=== PATIENT | male | born 1975 | race Caucasian/White ===

== ENCOUNTER 2019-06-01 22:23 | Inpatient (IN) ==
--- OUTSIDE RECORDS SUMMARY | 2019-06-01 22:26 | External Medical Summary | Continuity of Care Document ---
:1975 Author Name Velia Tony, Provider Address Unavailable Unavailable , Care Team Providers Name Role Phone Natalya Tony, Alexis Choudhury Unavailable [email or web address] Windy GILBERT Unavailable Unavailable Unavailable Unavailable Unavailable Assessments Assessed Problems:Rheumatic fever Problems Visit for vasectomy evaluation (V25.09) (Z30.09) Pain in scrotum or testicle (608.9) Encounter for sterilization (V25.2) (Z30.2) Rheumatic fever (390) (I00) Encounter for vasectomy (V25.2) (Z30.2) Hypertension (401.9) (I10) Allergies and Adverse Reactions No Known Drug Allergies (Allergy) Medications Excedrin Migraine TABS; TAKE 1 TABLET 3 TIMES DAILY NEEDE D. Refills: 0 Co Q10 100 MG Oral Capsule; TAKE 1 CAPSULE Daily Refills: 0 Folic Acid 5 MG Oral Capsule Refills: 0 Vitamin B12 100 MCG Oral Tablet Refills: 0 amLODIPine Besylate 5 MG Oral Tablet; TAKE 1 TABLET DAILY. Start: 21-Nov-2018 Quantity: 90 Refills: 3 Fluocinonide 0.05 % External Cream Start : 21-Nov-2018 Refills: 0 Pimecrolimus 1 % External Cream Start: Refills: 0 30 GM Tube Methotrexate Sodium 2.5 MG Oral Tablet; take 6 tablets by [facility] every week Start: 21-Nov-2018 Refills: 0 Procedures History of Oral Surgery Tooth Extraction Status: Completed Immunizations Immunizations not documented Family History Father Family history of hypertension (V17.49) (Z82.49) Status: Act anne-marie Grandfather Family history of hypertension (V17.49) (Z82.49) Status: Act anne-marie Grandmother Family history of leukemia (V16.6) (Z80.6) Status: Active Social History - Smoking Status Never smoker Interventions Discussion/[id number] male with persistent arthritis with skin rash with question of rheumatic fever. Diagnosis of rheumatic fever appears highly unlikely given that arthritis is more predominantly small joint rash inconsistent with erythema marginatum given pruritic nature and appearance, and would not expect any significant response to methotrexate. I agreed that this most likely represents psoriatic disease, and had no problem with discontinuation of penicillin and institution of biologics if necessary. Und ertook extensive discussion regarding all aspects of rheumatic fever, patient appears satisfied withour discussion. Plan of Treatment Planned Observations Planned Goals not documented Results No Known Results Results not documented Encounters Appointment; Alexis Hoang M.D. 21-Nov-2018 11:30 Encounter Diagnosis: Problem not documented
[2019-06-01] MEDS ORDERED: ONDANSETRON INJ 2 MG/ML 2 ML VIAL IV STA (22:49)
[2019-06-01] MEDS ORDERED: SODIUM CHLORIDE 0.9% 1000ML 1,000 ML IV SCH (23:00)
[2019-06-01] MEDS: MoRPHine SULFATE 4 MG/ML 1 ML CARP\\VIAL IV PRN ×2 (23:05→23:23)
[2019-06-01 23:12] LABS: Basophils # (auto) 0.01 K/uL (0-0.2); Basophils % (auto) 0.1 %; Eosinophils # (auto) 0.06 K/uL (0-0.5); Eosinophils % (auto) 0.7 %; Hematocrit (blood only) 38.3 % (42-52); Hemoglobin 12.9 g/dL (14.0-18.0); Immature Granulocytes # (auto) 0.02 K/uL (0.00-0.02); Immature Granulocytes % (auto) 0.2 %; Lymphocytes # (auto) 1.69 K/uL (1.2-3.4); Lymphocytes % (auto) 20.2 %; Mean Corpuscular Hemoglobin 30.1 pg (25-34); Mean Corpuscular Hgb Conc 33.7 g/dL (32-36); Mean Corpuscular Volume 89.3 fL (80-100); Mean Platelet Volume 9.9 fL (7.4-10.4); Monocytes # (auto) 0.47 K/uL (0.11-0.59); Monocytes % (auto) 5.6 %; Neutrophils # (auto) 6.12 K/uL (1.4-6.5); Neutrophils % (auto) 73.2 %; Platelet Count 254 K/uL (130-400); RDW Coefficient of Variation 13.1 % (11.5-14.5); RDW Standard Deviation 42.7 fL (36.4-46.3); Red Blood Count 4.29 M/uL (4.7-6.1); White Blood Count 8.37 K/uL (4.8-10.8)
[2019-06-01 23:31] LABS: Alanine Aminotransferase 42 U/L (12-78); Albumin Level 4.2 gm/dl (3.4-5.0); Aspartate Aminotransferase 16 U/L (15-37); BUN Creatinine Ratio 9.1 (10-20); Blood Urea Nitrogen 7 mg/dl (7-18); Carbon Dioxide 27 mmol/L (21-32); Chloride 105 mmol/L (98-107); Est GFR (African American) 127.5; Glucose 114 mg/dl (70-99); Lipase 83 U/L (73-393); Potassium 3.7 mmol/L (3.5-5.1); Sodium 142 mmol/L (136-145)
[2019-06-01 23:33] LABS: Albumin Globulin Ratio 1.4 (0.9-2); Alkaline Phosphatase 74 U/L (45-117); Bilirubin,Total 0.5 mg/dl (0.2-1); Globulin 3.1 gm/dl (2.5-4.0); Total Protein 7.3 gm/dl (6.4-8.2)
[2019-06-01] MEDS ORDERED: HYDROmorphone INJ 1 MG/ML SYRINGE IV PRN (23:58)
[2019-06-02 01:03] LABS: Troponin I < 0.015 ng/ml (0-0.045)
[2019-06-02] MEDS ORDERED: TAMSULOSIN HCL 0.4 MG CAP PO ONE (01:22)
[2019-06-02] MEDS ORDERED: KETOROLAC TROMETHAMINE 15 MG/ML VIAL IV ONE (01:22)
--- NOTE | 2019-06-02 01:53 | Emergency Department Note ---
Entered by Alessandro Ceballos acting as a scribe for Marvin Richards DO History of Present Illness General Chief complaint: GI Assessment Stated complaint: LOWER BACK PAIN,CHILLS,VOMITING,LOWER ABD PAIN Source: patient Limitations: no limitations History of Present Illness Onset (ago): hour(s) (three and half hours) Location: back Radiation: distal (testicles) Pain Consistency: + other (worsening) Maximum Pain Intensity: 8 Quality: + constant Associated symptoms: + denies other symptoms (dark or bloody urine) and + fever/chills (chills) Treatments prior to arrival: heat therapy The patient is a 43 year old male who presents to the Emergency Room with complaints of constant and worsening lower back pain starting 3 and a half hours ago. He states the pain came on suddenly and the pain radiates to his right testicle. He states he started to get chills an hour and half ago. He notes he has been vomiting and has nausea. He denies a previous history of kidney stones. He states he feels like he needs to produce a bowel movement. He notes he does not feel like he needs to urinate. He notes he used heat therapy. He denies dark urine, bloody urine, smoking, and drinking alcohol. He states he takes Otezla. He notes he is allergic to methotrexate. He states he has had wisdom teeth surgery. Home Medications Home Medications Medication Instructions Recorded Confirmed Type amlodipine 5 mg PO DAILY 06/01/19 06/01/19 History apremilast [Otezla] 30 mg PO BID 06/01/19 06/01/19 History aspirin [Aspir-81] 81 mg PO DAILY 06/01/19 06/01/19 History cholecalciferol (vitamin D3) 2,000 unit PO DAILY 06/01/19 06/01/19 History [Vitamin D3] fluocinonide 1 applic TOPICAL DIRECTED PRN 06/01/19 06/01/19 History folic acid 1 mg PO DAILY 06/01/19 06/01/19 History multivitamin 1 tab PO DAILY 06/01/19 06/01/19 History pimecrolimus [Elidel] 1 applic TOPICAL DIRECTED PRN 06/01/19 06/01/19 History Allergies Allergy/AdvReac Type Severity Reaction Status Date / Time methotrexate AdvReac Severe INCREASE Verified 06/01/19 23:03 LIVER TESTS Past Med/Surg History Surgical History Hx of wisdom tooth extraction Family History Other Family history non-contributory Social History Feels Safe at Home: Yes Smoking Status: Never smoker Review of Systems See HPI for pertinent positives & negatives. and A total of 10 systems reviewed and were otherwise negative Physical Exam Vital Signs Vital Signs - 24 hr 06/01/19 22:25 06/01/19 23:12 06/01/19 23:58 Temperature 36.7 C Temperature Source Oral Sepsis Recent Fever Within 48 Hours No Sepsis Action Taken by Nursing No Action Required Pulse Rate 76 72 Pulse Rate [Apical] 76 Pulse Rhythm Regular Pulse Rhythm [Apical] Regular Respiratory Rate 18 16 12 Respiratory Effort / Characteristics Non-Labored Spontaneous Non-Labored Spontaneous Respiratory Depth Normal Normal Respiratory Pattern Regular Blood Pressure 135/96 Blood Pressure [Left Arm] 133/87 Blood Pressure Mean 109 Blood Pressure Mean [Left Arm] 102 Pulse Oximetry 98 99 94 Oxygen Delivery Method Room Air Room Air Room Air 06/02/19 01:00 Temperature Temperature Source Sepsis Recent Fever Within 48 Hours Sepsis Action Taken by Nursing Pulse Rate Pulse Rate [Apical] 81 Pulse Rhythm Pulse Rhythm [Apical] Respiratory Rate 18 Respiratory Effort / Characteristics Respiratory Depth Respiratory Pattern Blood Pressure Blood Pressure [Left Arm] 133/87 Blood Pressure Mean Blood Pressure Mean [Left Arm] 102 Pulse Oximetry 95 Oxygen Delivery Method GENERAL: Patient is awake, alert. Patient is resting comfortably and very anxious appearing. Patient is in moderate pain. EYES: The conjunctivae are clear. The pupils are round and reactive. EARS, NOSE, MOUTH AND THROAT: The nose is without any evidence of any deformity. Mucous membranes are moist.Tongue is midline NECK: The neck is nontender and supple. RESPIRATORY: Normal respiratory effort is noted. There is no evidence of wheezing rhonchi or rales to auscultation. CARDIOVASCULAR: Regular rate and rhythm noted. There no murmurs rubs or gallops normal S1 normal S2 GASTROINTESTINAL: The abdomen is soft. Bowel sounds are present in all quadrants. Nondistended. Right upper and right lower quadrant are tender to palpation. BACK: No midline tenderness or or step-off noted range of motion in flexion extension as well as rotation no signs of muscle spasm noted. Right CVA tenderness noted to percussion. MUSCULOSKELETAL/EXTREMITIES: There is no evidence of gross deformity. Full range of motion is noted in the hips and shoulders. : Circumcised male. Testicles were distended bilaterally. SKIN: There is no obvious evidence of any rash. There are no petechiae, pallor or cyanosis noted. NEUROLOGIC: Patient is awake alert and oriented x3. Course 2249: The patient was evaluated in room B11B, and a complete history and physical examination were performed. 0123: I discussed the patient's case with Dr. Dubois - [facility]. He will evaluate the patient for further management Administered Medications Hydromorphone HCl (Dilaudid) 1 mg IV Q15M PRN PRN Reason: Pain Stop: 06/15/19 23:57 Last Admin: 06/02/19 00:21 Dose: 1 mg Documented by: [id number] Morphine Sulfate (Morphine Sulfate) 4 mg IV Q15M PRN PRN Reason: Pain Stop: 06/15/19 22:48 Last Admin: 06/01/19 23:23 Dose: 4 mg Documented by: [id number] Admin: 06/01/19 23:05 Dose: 4 mg Documented by: [id number] Discontinued Medications Sodium Chloride (Nss 1000ml) 1,000 mls @ 999 mls/hr IV .Q1H1M KATY Stop: 06/02/19 00:00 Last Infusion: 06/02/19 00:25 Dose: 0 mls/hr Documented by: [id number] Admin: 06/01/19 23:05 Dose: 999 mls/hr Documented by: [id number] Ketorolac Tromethamine (Toradol) 10 mg IV NOW ONE Stop: 06/02/19 01:23 Last Admin: 06/02/19 01:32 Dose: 10 mg Documented by: [id number] Ondansetron HCl (Zofran) 4 mg IV NOW STA Stop: 06/01/19 22:50 Last Admin: 06/01/19 23:05 Dose: 4 mg Documented by: [id number] Tamsulosin HCl (Flomax) 0.4 mg PO NOW ONE Stop: 06/02/19 01:23 Last Admin: 06/02/19 01:32 Dose: 0.4 mg Documented by: [id number] Medical Decision Making Differential Diagnosis Differential diagnoses includes but is not limited to gastritis, peptic ulcer disease, GERD, gallbladder disease, pancreatitis, small bowel obstruction, acute coronary syndrome, pericarditis, ischemic bowel, irritable bowel disease, irritable bowel syndrome, appendicitis, diverticulitis, malignancy, hernia, urinary tract infection, torsion, perforation, trauma, infectious. Medical Records Attestation: I reviewed the patient's medical records. Home Medications Current Medication List: was personally reviewed by me Laboratory Data Attestation: I reviewed the patient's lab results. Result diagrams: 06/01/19 22:58 06/01/19 22:58 Lab Results 06/01/19 06/01/19 Range/Units 22:58 22:58 WBC 8.37 (4.8-10.8) K/uL RBC 4.29 L (4.7-6.1) M/uL Hgb 12.9 L (14.0-18.0) g/dL Hct 38.3 L (42-52) % MCV 89.3 (80-100) fL MCH 30.1 (25-34) pg MCHC 33.7 (32-36) g/dL RDW Std Deviation 42.7 (36.4-46.3) fL RDW Coeff of Nancy 13.1 (11.5-14.5) % Plt Count 254 (130-400) K/uL MPV 9.9 (7.4-10.4) fL Immature Gran % (Auto) 0.2 % Neut % (Auto) 73.2 % Lymph % (Auto) 20.2 % Carson % (Auto) 5.6 % Eos % (Auto) 0.7 % Baso % (Auto) 0.1 % Immature Gran # (Auto) 0.02 (0.00-0.02) K/uL Neut # (Auto) 6.12 (1.4-6.5) K/uL Lymph # (Auto) 1.69 (1.2-3.4) K/uL Carson # (Auto) 0.47 (0.11-0.59) K/uL Eos # (Auto) 0.06 (0-0.5) K/uL Baso # (Auto) 0.01 (0-0.2) K/uL Sodium 142 (136-145) mmol/L Potassium 3.7 (3.5-5.1) mmol/L Chloride 105 (98-107) mmol/L Carbon Dioxide 27 (21-32) mmol/L Anion Gap 10.0 (3-11) BUN 7 (7-18) mg/dl Creatinine 0.79 (0.6-1.4) mg/dl Est Cr Clr Drug Dosing 148.0 ml/min Est GFR ( Amer) 127.5 Est GFR (Non-Af Amer) 110.0 BUN/Creatinine Ratio 9.1 L (10-20) Glucose 114 H (70-99) mg/dl Calcium 9.0 (8.5-10.1) mg/dl Total Bilirubin 0.5 (0.2-1) mg/dl AST 16 (15-37) U/L ALT 42 (12-78) U/L Alkaline Phosphatase 74 (45-117) U/L Troponin I < 0.015 (0-0.045) ng/ml Total Protein 7.3 (6.4-8.2) gm/dl Albumin 4.2 (3.4-5.0) gm/dl Globulin 3.1 (2.5-4.0) gm/dl Albumin/Globulin Ratio 1.4 (0.9-2) Lipase 83 (73-393) U/L Imaging Data Radiologist's Impression: Radiology results as stated below per my review and the radiologist's interpretation: CT ABDOMEN & PELVIS Without Contrast: Obstructing stone measuring 3 mm at the mid right ureter mild right hydronephrosis and hydroureter. Additional small nonobstructing stones in both kidneys. Radiologist: Herminio Kelly MD Study ready at 23:54 and initial results transmitted at 00:45 ECG Data Attestation: I personally reviewed and interpreted this ECG as follows: Indication: abdominal pain Rate (beats per minute): 74 Rhythm: other (ectopic atrial rhythm) Findings: no ST depression, no ST elevation and no ectopy Comparison ECG Date: no prior available Blood Pressure Blood Pressure Findings: Elevated blood pressure Blood Pressure Disposition: further management by hospitalist ARCHANA Herndon The patient is a 43-year-old male who presented to the emergency department with acute right flank pain. The patient's history and physical exam appear to be consistent with renal colic. CAT scan did reveal a mid right ureteral calculus. There was mild hydronephrosis noted. The patient was treated with IV fluids IV pain medication and IV antiemetics. He was also given Flomax. On reevaluation he was feeling somewhat improved but still had very significant pain. For this reason I discussed his case with the on-call [facility] hospitalist. They have agreed to evaluate the patient in the emergency department for further management disposition. I discussed the patient's laboratory and radiographic studies with him. Impression & Plan Renal colic on right side, Intractable abdominal pain Discharge Plan Visit Data Chief Complaint: GI Assessment Stated Complaint: LOWER BACK PAIN,CHILLS,VOMITING,LOWER ABD PAIN ED Provider: Marvin Richards Discharge Problem: Renal colic on right side, Intractable abdominal pain Forms Stand Alone Forms: My [facility] Prescriptions Prescriptions: No Action multivitamin Tablet 1 tab PO DAILY RF: 0 pimecrolimus [Elidel] 1 % cream 1 applic topical DIRECTED PRN (Reason: Skin Irritation) RF: 0 amlodipine 5 mg Tablet 5 mg PO DAILY RF: 0 aspirin [Aspir-81] 81 mg Tablet,Delayed Release (Dr/Ec) 81 mg PO DAILY RF: 0 folic acid 1 mg Tablet 1 mg PO DAILY RF: 0 fluocinonide 0.05 % solution 1 applic topical DIRECTED PRN (Reason: Skin Irritation) RF: 0 cholecalciferol (vitamin D3) [Vitamin D3] 2,000 unit Capsule 2,000 unit PO DAILY RF: 0 Otezla 30 mg tablet 30 mg PO BID RF: 0 The scribe's documentation has been prepared under my direction and personally r eviewed by me in its entirety. I confirm that the note above accurately reflects all work, treatment, procedures, and medical decision making performed by me.
[2019-06-02 02:30] LABS: Appearance Urine Cloudy (Clear); Bilirubin Urine Negative (Negative); Blood Urine 3+ (Negative); Color Urine Red; Glucose Urine UA Negative (Negative); Ketones Urine 2+ (Negative); Leukocyte Esterase Urine Negative (Negative); Nitrite Urine Negative (Negative); Urobilinogen Urine Negative (Negative); pH Urine 7.5 (4.5-7.5)
[2019-06-02 02:39] LABS: Protein Urine Negative (Negative)
[2019-06-02 02:42] LABS: Bacteria Urine Negative (Negative); RBC Urine >30 /hpf (0-4)
[2019-06-02] MEDS ORDERED: ONDANSETRON INJ 2 MG/ML 2 ML VIAL IV PRN (02:50)
[2019-06-02] MEDS ORDERED: ACETAMINOPHEN 325 MG TAB PO PRN (02:50)
[2019-06-02] MEDS ORDERED: KETOROLAC TROMETHAMINE 15 MG/ML VIAL IV PRN (02:50)
--- NOTE | 2019-06-02 02:51 | History & Physical Report ---
Date of Service June 02, 2019 Assessment & Plan (1) Renal colic on right side: Fausto is a 43 year old male with a past medical history of hypertension, and psoriatic arthritis who presents to the emergency department due to right- sided flank pain. ED course: 4mg IV morphine x 2, 1mg IV dilaudid, 10mg IV ketorolac, 0.4mg tamsulosin, 4mg IV zofran, 1L NS bolus -admit to med/surg -CT abdomen and pelvis showed "obstructing 3mm stone at mid right ureter causing mild right hydronephrosis and hydroureter" -creatinine WNL at 0.79 -afebrile, no leukocytosis, UA without evidence of superimposed infection - will hold abx for now -given relatively small size of stone, expect it to pass spontaneously. Defer urology consult for now -continue pain regimen w/prn tylenol and toradol -> can step up to prn morphine if needed -tamsulosin 0.4mg daily to aid w/passage of stone -LR ordered at 135 mls/hr -strain all urine Hypertension -continue home amlodipine -hold home aspirin given hematuria, can resume on d/c Psoriatic Arthritis -hold otezla -I am unable to find data linking Otezla to kidney stones, however recommend that the patient discuss continuing this medication with his windshield technician as he reports kidney stones was listed as a side effect Code status: FULL DVT Prophylaxis: Low risk, encourage ambulation Disposition: admit to med/surg (2) Intractable abdominal pain: (3) Hypertension: (4) Psoriatic arthritis: History of Present Illness Chief Complaint: Kidney Stone Primary Care Provider: Haris Aguirre MD Fausto is a 43 year old male with a past medical history of hypertension, and psoriatic arthritis who presents to the emergency department due to right-sided flank pain. He states that this began suddenly at 7:30 PM today. The pain starts in his right groin, and radiates around to his testicles. He states it worsened throughout the evening, and around 9:15PM, he reports he could not sit still. He states the pain comes in waves, 8/10 in severity. He endorses associated hematuria, chills, and nausea. He did have 5-6 episodes of vomiting due to the pain. He reports the pain has also moved to his suprapubic region. He denies a prior history of kidney stones. He states he typically drinks a gallon of water per day, and maybe 1 to 2 cups of coffee. With regards to his history of psoriatic arthritis, he follows with a windshield technician in [place]. The arthritis is in his middle finger bilaterally, right hip, and toes. He states it is significantly milder than when he was first diagnosed with it. He previously tried methotrexate, however this resulted in transaminitis. He started a new medication, Otezla, approximately 7 weeks ago. He is concerned as kidney stones a side effect listed for this medication. Allergies Allergy/AdvReac Type Severity Reaction Status Date / Time methotrexate AdvReac Severe INCREASE Verified 06/01/19 23:03 LIVER TESTS Home Medications Home Medications Medication Instructions Recorded Confirmed Type amlodipine 5 mg PO DAILY 06/01/19 06/01/19 History apremilast [Otezla] 30 mg PO BID 06/01/19 06/01/19 History aspirin [Aspir-81] 81 mg PO DAILY 06/01/19 06/01/19 History cholecalciferol (vitamin D3) 2,000 unit PO DAILY 06/01/19 06/01/19 History [Vitamin D3] fluocinonide 1 applic TOPICAL DIRECTED PRN 06/01/19 06/01/19 History folic acid 1 mg PO DAILY 06/01/19 06/01/19 History multivitamin 1 tab PO DAILY 06/01/19 06/01/19 History pimecrolimus [Elidel] 1 applic TOPICAL DIRECTED PRN 06/01/19 06/01/19 History Past Med/Surg History Medical History Hypertension Surgical History Hx of wisdom tooth extraction Family History Other Family history non-contributory Social History Preferred Language: Macanese Communication Ability: Effective Python Java Developer Required: No Beliefs That Will Affect Care: None Current Living Situation: Spouse Other Information That Helps Us Care for You: No Feels Safe at Home: Yes Smoking Status: Never smoker Do You Dip or Chew Tobacco: No ; Second Hand Exposure: No ; Tobacco Cessation Education Requested by Patient: No Hx Alcohol Use: No Hx Substance Use: No Review of Systems Constitutional: + chills; no fever Respiratory: no cough and no dyspnea Cardiovascular: no chest pain, no palpitations, no syncope, no edema and no calf pain Gastrointestinal: + abdominal pain, + nausea and + vomiting; no change in bowel habits Genitourinary: + hematuria and + flank pain; no dysuria and no difficulty urinating Physical Exam Constitutional: WD/WN, vitals as above cooperative and comfortable Eyes: PERRL, conjunctivae normal, anicteric sclerae ENMT: external ear and nose normal, oropharynx normal Respiratory: normal respiratory effort, lungs clear to auscultation Cardiovascular: RRR, no murmur, no edema Gastrointestinal (Abdomen): normal bowel sounds, soft, nontender, no hepatosplenomegaly Skin: no rashes, warm and dry Neurologic: 5/5 power in UE and LE. Sensation intact. Psychiatric: A+Ox3, euthymic affect Results & Data Vital Signs (Past 12 Hours) Vital Signs Temp Pulse Pulse Resp BP BP Pulse Ox 06/02/19 01:00 81 18 133/87 95 06/01/19 23:58 76 12 133/87 94 06/01/19 23:12 72 16 99 06/01/19 22:25 36.7 C 76 18 135/96 98 Code Status & VTE Plan VTE Prophylaxis Plan VTE Prophylaxis will be ordered: No Supervising Physician Co-Signing Physician Notes Patient was seen and examined by me personally. I reviewed the chart, the orders and discussed the case in detail with Dr. Aleshia Gale MD . I read this H&P and agree with its contents to entirety. PG Care Time/CCT Total # of Minutes Spent Total Time Spent with Patient: Total time spent is greater than 50% in coordination of care (as documented) at patient's floor/unit and/or counseling patient: Resident Activity Tracking Resident Involvement: Resident Care Provided Care Provided: Adult Hospital Medicine
[2019-06-02] MEDS: LACTATED RINGER'S 1,000 ML IV SCH ×2 (03:35→11:01)
[2019-06-02 06:23] LABS: Basophils # (auto) 0.01 K/uL (0-0.2); Basophils % (auto) 0.1 %; Eosinophils # (auto) 0.01 K/uL (0-0.5); Eosinophils % (auto) 0.1 %; Hematocrit (blood only) 36.4 % (42-52); Hemoglobin 12.1 g/dL (14.0-18.0); Immature Granulocytes # (auto) 0.03 K/uL (0.00-0.02); Immature Granulocytes % (auto) 0.3 %; Lymphocytes # (auto) 0.53 K/uL (1.2-3.4); Lymphocytes % (auto) 4.6 %; Mean Corpuscular Hemoglobin 29.9 pg (25-34); Mean Corpuscular Hgb Conc 33.2 g/dL (32-36); Mean Corpuscular Volume 89.9 fL (80-100); Monocytes # (auto) 0.27 K/uL (0.11-0.59); Monocytes % (auto) 2.3 %; Neutrophils # (auto) 10.75 K/uL (1.4-6.5); Neutrophils % (auto) 92.6 %; Platelet Count 248 K/uL (130-400); RDW Coefficient of Variation 13.1 % (11.5-14.5); RDW Standard Deviation 43.4 fL (36.4-46.3); Red Blood Count 4.05 M/uL (4.7-6.1)
[2019-06-02 06:52] LABS: BUN Creatinine Ratio 9.1 (10-20); Calcium 8.6 mg/dl (8.5-10.1); Creatinine Clr Calc Pharmacy 155.9 ml/min; Est GFR (African American) 130.2; Est GFR (Non-African American) 112.4; Potassium 3.9 mmol/L (3.5-5.1)
--- NOTE | 2019-06-02 07:16 | CT Scan Report ---
CT SCAN OF THE ABDOMEN AND PELVIS WITHOUT IV CONTRAST CLINICAL HISTORY: Right flank pain. COMPARISON STUDY: No priors. TECHNIQUE: CT scan of the abdomen and pelvis is performed from the lung bases to the proximal femora. Images are reviewed in the axial, sagittal, and coronal planes. IV contrast was not administered for this examination. A dose lowering technique was utilized adhering to the principles of ALARA. CT DOSE: 1151.80 mGy.cm FINDINGS: Lung bases: The heart is normal in size and without pericardial effusion. The lung bases are clear no ting dependent atelectasis. There is a tiny hiatal hernia. Liver: The unenhanced liver is normal in size, contour, and attenuation. There is no intrahepatic meryl iary ductal dilatation. Gallbladder: Unremarkable. Spleen: Normal in size and attenuation. Pancreas: Unremarkable. Adrenal glands: Unremarkable. Kidneys: The unenhanced kidneys are normal in size. There is a 5 mm obstructing calculus in the mid r ight ureter seen on image #[id number] at the level of L4-L5. This causes mild right-sided hydroureteronephro sis. There are at least 3 additional nonobstructing right renal calculi which measure up to 5 mm. The re are at least 4 nonobstructing left renal calculi which measure up to 5 mm. There is no left-sided hydronephrosis. There is no evidence of contour deforming renal mass lesion. Abdominal vasculature: The abdominal aorta is normal in course and caliber. Bowel: There are scattered colonic diverticula without CT evidence of acute diverticulitis. No bowel obstruction is seen. The appendix is well-visualized and normal. Peritoneum: There is no intraperitoneal free air or abdominal ascites. There is a small fat-containin g umbilical hernia. Lymphadenopathy: None. Pelvic viscera: The bladder, prostate, and seminal vesicles are normal as visualized. Skeletal structures: No lytic or blastic lesions are seen. IMPRESSION: 1. There is a 5 mm obstructing calculus in the mid right ureter as above. This causes mild right hydr oureteronephrosis. 2. Additional bilateral nonobstructing renal calculi as above. 3. There are scattered colonic diverticula without CT evidence of acute diverticulitis. Electronically signed by: Bran Vazquez M.D. 06/02/2019 7:14 AM
[2019-06-02] MEDS ORDERED: TAMSULOSIN HCL 0.4 MG CAP PO SCH (09:00)
[2019-06-02] MEDS ORDERED: AMLODIPINE BESYLATE 5 MG TAB PO SCH (09:00)
--- NOTE | 2019-06-02 10:31 | Family Medicine Progress Note ---
Date of Service June 02, 2019 Assessment & Plan (1) Nephrolithiasis: - CT abd showed a stone obstructing the right ureter at a size of 5 mm with multiple stones on the left and right side 5 mm or less that were nonobstructive. - Patient's pain is well controlled with ketorolac and acetaminophen - Aggressive fluid management with lactated ringers 1L/8 hrs and flomax QAM to aid expulsion - Zofran PRN for nausea - holding off on Urology consult for now - hopefully patient will pass stones given hematuria and pain are both decreasing and can be discharged within the day or tomorrow morning. Present on Admission?: Yes (2) Hypertension: - on amlodipine 5 mg, continued in hospital - holding ASA 81 given hematuria (3) Psoriatic arthritis: - was taking Otezla for control of Psoriatic arthritis - no data showing it causes nephrolithiasis, but patient should discuss pro/con of taking this medication with his it trainee Supervising Physician Co-Signing Physician Notes I saw the patient with the resident physician and confirmed padron portion of the history and physical exam. I agree with the impression and plan as noted above. Upon our examination, the patient is resting supine in bed. He is reading a book. He feels quite well other than some right-sided flank pain with urination although this is much improved compared to admission. Patient remains afebrile. He is tolerating p.o. without difficulty. Okay for discharge today and outpatient urology follow-up next week. He knows that he can return to the hospital should the pain necessitate or if he develops a fever. Discharge plan 1) Macrobid 100 mg twice daily -chose to start him on some prophylaxis due to his history of psoriatic arthritis 2) Zofran as needed nausea; ibuprofen 600 mg p.o. every 6 hours as needed mild to moderate pain; [place] 1 p.o. every 6 hours as needed severe pain. 3) Flomax daily 4) strain urine -I provided him with a urine strainer prior to discharge 5) follow-up with urology as an outpatient next week. Subjective 43 yo M admitted from ED yesterday for right sided renal colic secondary to nephrolithiasis. Was given bolus of fluids and morphine for pain control in ED after abdominal CT confirmed the presence of a 5mm stone obstructing the right ureter and causing mild hydroureteronephrosis. This morning he feels in much better spirits, says the ketorolac aided his pain management much more than the morphine did. No longer feels pain at rest, minimal pain for a few seconds while he urinates. Also states that the amount of blood in his urine has decreased and he has been urinating almost hourly since arrival. Denies chest pain, nausea, vomiting, constipation, diarrhea, headache, back pain. Attests to mild dysuria and hematuria that is improving. Review of Systems Constitutional: no fever, no chills, no sweats, no body aches and no weakness Respiratory: no cough, no dyspnea and no pain on inspiration Cardiovascular: no chest pain, no palpitations and no edema Gastrointestinal: no abdominal pain, no nausea, no vomiting, no cramping, no constipation and no diarrhea/loose stools Genitourinary: + dysuria, + urinary frequency and + hematuria; no difficulty urinating and no flank pain Physical Exam Constitutional: WD/WN, vitals as above + thin, cooperative and comfortable Respiratory: normal respiratory effort; no respiratory distress and no cough Auscultation: no crackles, no rales and no wheezes Cardiovascular: RRR, no murmur, no edema Gastrointestinal (Abdomen): normal bowel sounds, soft, nontender, no hepatosp lenomegaly Genitourinary: no CVA tenderness Results & Data Vital Signs (Past 12 Hours) Vital Signs Temp Pulse Pulse Pulse Resp BP BP 06/02/19 07:53 36.7 C 66 18 06/02/19 02:55 36.6 C 65 15 143/91 H 06/02/19 01:00 81 18 133/87 06/01/19 23:58 76 12 133/87 06/01/19 23:12 72 16 06/01/19 22:25 36.7 C 76 18 135/96 BP Pulse Ox 06/02/19 07:53 122/90 94 06/02/19 02:55 95 06/02/19 01:00 95 06/01/19 23:58 94 06/01/19 23:12 99 06/01/19 22:25 98 Laboratory Results WBC 11.60 K/uL (4.8-10.8) H 06/02/19 05:17 RBC 4.05 M/uL (4.7-6.1) L 06/02/19 05:17 Hgb 12.1 g/dL (14.0-18.0) L 06/02/19 05:17 Hct 36.4 % (42-52) L 06/02/19 05:17 MCV 89.9 fL (80-100) 06/02/19 05:17 MCH 29.9 pg (25-34) 06/02/19 05:17 MCHC 33.2 g/dL (32-36) 06/02/19 05:17 RDW Std Deviation 43.4 fL (36.4-46.3) 06/02/19 05:17 RDW Coeff of Nancy 13.1 % (11.5-14.5) 06/02/19 05:17 Plt Count 248 K/uL (130-400) 06/02/19 05:17 MPV 10.0 fL (7.4-10.4) 06/02/19 05:17 Immature Gran % (Auto) 0.3 % 06/02/19 05:17 Neut % (Auto) 92.6 % 06/02/19 05:17 Lymph % (Auto) 4.6 % 06/02/19 05:17 [place] % (Auto) 2.3 % 06/02/19 05:17 Eos % (Auto) 0.1 % 06/02/19 05:17 Baso % (Auto) 0.1 % 06/02/19 05:17 Immature Gran # (Auto) 0.03 K/uL (0.00-0.02) H 06/02/19 05:17 Neut # (Auto) 10.75 K/uL (1.4-6.5) H 06/02/19 05:17 Lymph # (Auto) 0.53 K/uL (1.2-3.4) L 06/02/19 05:17 [place] # (Auto) 0.27 K/uL (0.11-0.59) 06/02/19 05:17 Eos # (Auto) 0.01 K/uL (0-0.5) 06/02/19 05:17 Baso # (Auto) 0.01 K/uL (0-0.2) 06/02/19 05:17 Sodium 137 mmol/L (136-145) 06/02/19 05:17 Potassium 3.9 mmol/L (3.5-5.1) 06/02/19 05:17 Chloride 104 mmol/L (98-107) 06/02/19 05:17 Carbon Dioxide 29 mmol/L (21-32) 06/02/19 05:17 Anion Gap 4.0 (3-11) 06/02/19 05:17 BUN 7 mg/dl (7-18) 06/02/19 05:17 Creatinine 0.75 mg/dl (0.6-1.4) 06/02/19 05:17 Est Cr Clr Drug Dosing 155.9 ml/min 06/02/19 05:17 Est GFR ( Amer) 130.2 06/02/19 05:17 Est GFR (Non-Af Amer) 112.4 06/02/19 05:17 BUN/Creatinine Ratio 9.1 (10-20) L 06/02/19 05:17 Glucose 119 mg/dl (70-99) H 06/02/19 05:17 Calcium 8.6 mg/dl (8.5-10.1) 06/02/19 05:17 Total Bilirubin 0.5 mg/dl (0.2-1) 06/01/19 22:58 AST 16 U/L (15-37) 06/01/19 22:58 ALT 42 U/L (12-78) 06/01/19 22:58 Alkaline Phosphatase 74 U/L (45-117) 06/01/19 22:58 Troponin I < 0.015 ng/ml (0-0.045) 06/01/19 22:58 Total Protein 7.3 gm/dl (6.4-8.2) 06/01/19 22:58 Albumin 4.2 gm/dl (3.4-5.0) 06/01/19 22:58 Globulin 3.1 gm/dl (2.5-4.0) 06/01/19 22:58 Albumin/Globulin Ratio 1.4 (0.9-2) 06/01/19 22:58 Lipase 83 U/L (73-393) 06/01/19 22:58 Urine Color Red 06/02/19 01:30 Urine Appearance Cloudy (Clear) A 06/02/19 01:30 Urine pH 7.5 (4.5-7.5) 06/02/19 01:30 Ur Specific [place] 1.010 (1.000-1.030) 06/02/19 01:30 Urine Protein Negative (Negative) 06/02/19 01:30 Urine Glucose (UA) Negative (Negative) 06/02/19 01:30 Urine Ketones 2+ (Negative) H 06/02/19 01:30 Urine Blood 3+ (Negative) H 06/02/19 01:30 Urine Nitrite Negative (Negative) 06/02/19 01:30 Urine Bilirubin Negative (Negative) 06/02/19 01:30 Urine Urobilinogen Negative (Negative) 06/02/19 01:30 Ur Leukocyte Esterase Negative (Negative) 06/02/19 01:30 Urine RBC >30 /hpf (0-4) H 06/02/19 01:30 Urine WBC 5-10 /hpf (0-5) H 06/02/19 01:30 Ur Epithelial Cells 5-10 /lpf (0-5) H 06/02/19 01:30 Urine Bacteria Negative (Negative) 06/02/19 01:30 PG Care Time/CCT Total # of Minutes Spent Total Time Spent with Patient: Total time spent is greater than 50% in coordination of care (as documented) at patient's floor/unit and/or counseling patient: Resident Activity Tracking Resident Involvement: Resident Care Provided Care Provided: Adult Hospital Medicine
--- NOTE | 2019-06-09 13:16 | Discharge Summary ---
Date of Service 06/02/19 Admission HPI Per Admitting Provider Fausto is a 43 year old male with a past medical history of hypertension, and psoriatic arthritis who presents to the emergency department due to right-sided flank pain. He states that this began suddenly at 7:30 PM today. The pain starts in his right groin, and radiates around to his testicles. He states it worsened throughout the evening, and around 9:15PM, he reports he could not sit still. He states the pain comes in waves, 8/10 in severity. He endorses associated hematuria, chills, and nausea. He did have 5-6 episodes of vomiting due to the pain. He reports the pain has also moved to his suprapubic region. He denies a prior history of kidney stones. He states he typically drinks a gallon of water per day, and maybe 1 to 2 cups of coffee. With regards to his history of psoriatic arthritis, he follows with a jute bag sewer in [place]. The arthritis is in his middle finger bilaterally, right hip, and toes. He states it is significantly milder than when he was first diagnosed with it. He previously tried methotrexate, however this resulted in transaminitis. He started a new medication, Otezla, approximately 7 weeks ago. He is concerned as kidney stones a side effect listed for this medication. Principal Diagnosis Nephrolithiasis Discharge Exam Constitutional well developed, well nourished, cooperative and comfortable; no acute distress Respiratory normal respiratory effort; no respiratory distress Auscultation: lungs clear to auscultation bilaterally; no crackles, no rales and no wheezes Cardiovascular RRR, no murmur, no edema Gastrointestinal (Abdomen) Inspection/Auscultation: abdomen normal to inspection; abdomen not distended and no abdominal edema Percussion/Palpation: abdomen soft; abdomen nontender and no guarding Genitourinary no CVA tenderness Discharge Data Allergies Allergy/AdvReac Type Severity Reaction Status Date / Time methotrexate AdvReac Severe INCREASE Verified 06/01/19 23:03 LIVER TESTS Consultations 06/02/19 01:30 ED Decision to Admit Stat 06/02/19 15:10 Consult NAI integration manager Routine Ordered Studies 06/01/19 22:49 CT abd pelvis wo con Urgent Hospital Course (1) Nephrolithiasis: Pt was admitted to the hospital for severe intractable abdominal pain and hematuria due to kidney stones identified on CT scan in the ED. CT showed a 5 mm stone blocking the right ureter with multiple other stones in both kidneys of the same or smaller size that were not blocking flow. Given the size of the stones, urology was not consulted and he was managed with aggressive fluid resuscitation and pain management. Patient had significant improvement in pain, hematuria and nausea after staying overnight in the hospital. Patient was concerned that his Otezla that he recently started was the cause of the stone production. We counseled him to discuss these concerns with his jute bag sewer as he had been on a multitude of medications for his psoriatic arthritis over the past year and there could have been overlap in which ones caused the stones to build up. Because of the number of stones present and his immunocompromised status on the Otezla, the patient was discharge home with 7 days of Macrobid to decrease chances of infection development and progression. (2) Psoriatic arthritis: Total Time Total Time Spent Total Time Spent (In Minutes): >30 Discharge Plan Discharge Items Patient Disposition: Home - Self-Care Reason For Visit: R SIDED NEPHROLITHIASIS Discharge Diagnosis: nephrolithiasis Activity: Resume your previous activity Non-emergency contact: Primary Care Provider Call non-emergency contact if: you have any medication questions, your pain is not controlled and your temperature is above 101 Follow-up/Referrals: Haris Aguirre MD [Primary Care Provider] - Diet: Regular Addtl Attending Provider Instructions: You were admitted to the hospital due to multiple stones blocking the drainage of your right kidney which were causing you a great deal of pain. The CT scan of your abdomen showed a 5 mm stone blocking your right ureter with multiple other stones in both kidneys of the same or smaller size that were not blocking flow. Pain control and hydration with fluids will be the two things to keep these symptoms under control. Taking the prescription Flomax will also help increase the amount of urine output which should help to pass the stones. If you get nauseous from pain of passing the stones, you can take 1-2 of the dissolvable Zofran tabs. Because you are on Otezla and have multiple stones in your kidneys, you may be at an increased risk of developing an infection in your kidneys. For this reason we have prescribed you Macrobid, an antibiotic to kill any bacteria that may lurk around to cause an infection in the urinary tract. Take this twice a day for 7 days. Talk to your jute bag sewer about your Otezla and whether or not you can continue taking it to control your rheumatoid arthritis. Case management should give you a call on Wednesday06/05/19 about setting an appointment up with [facility] to follow up with them regarding future care of your kidneys and bladder. If you experience increasing bloody urination, severe pain with urination, chest pain, or back pain that does not go away with medication, return to the emergency department for evaluation. Pending Studies at Discharge: No Stand-Alone Forms: My [facility], Opioid Pain Management, Work/School Release (Inpt) Medications and DC Order Prescriptions: New tamsulosin 0.4 mg Capsule 0.4 mg PO QAM PRN (Reason: kidney stone) Qty: 15 RF: 0 ibuprofen 600 mg tablet 600 mg PO Q8H PRN (Reason: pain) Qty: 30 RF: 0 hydrocodone-acetaminophen [[place]] 5-325 mg tablet 1 tab PO Q6H PRN (Reason: pain) Qty: 10 RF: 0 Continued multivitamin Tablet 1 tab PO DAILY RF: 0 pimecrolimus [[place]idel] 1 % cream 1 applic topical DIRECTED PRN (Reason: Skin Irritation) RF: 0 amlodipine 5 mg Tablet 5 mg PO DAILY RF: 0 aspirin [Aspir-81] 81 mg Tablet,Delayed Release (Dr/Ec) 81 mg PO DAILY RF: 0 folic acid 1 mg Tablet 1 mg PO DAILY RF: 0 fluocinonide 0.05 % solution 1 applic topical DIRECTED PRN (Reason: Skin Irritation) RF: 0 cholecalciferol (vitamin D3) [Vitamin D3] 2,000 unit Capsule 2,000 unit PO DAILY RF: 0 Otezla 30 mg tablet 30 mg PO BID RF: 0 No Action coenzyme Q10 100 mg capsule 1 PO .TAKE 1 CAPSULE Daily RF: 0 folic acid 5 mg capsule PO RF: 0 cyanocobalamin (vitamin B-12) 100 mcg tablet PO RF: 0 Discharge Orders: Discharge Order (Routine); Ordered 06/02/19 Ordered By: Latonya Wilkinson/Other Patient Handouts: Kidney Stones, Kidney Stones Prevent Admission Data Admit Date/Time: 06/02/19 02:13 Attending Provider: Pradip Fields Admit Provider: Aleshia Gale Primary Care Provider: Aguirre,Haris D Other Interventions: Discharge Summary Assessment (RN) Last Done: 06/02/19 15:22 DC Date/Time DO NOT enter until pt leaves facility: 06/02/19 16:00 Supervising Physician Co-Signing Physician Notes Please see my attestation in the progress note of the same date. Time for discharge, including exam, coordinating care, and reviewing pre scritions was 40 mins. Resident Activity Tracking Resident Involvement: Resident Care Provided Care Provided: Adult Hospital Medicine
== END 2019-06-02 16:00 | disposition home or self-care (01) | DRG 694 ==
LOC: ED 22:23 → SUATTDRO 06-02 02:13 → 3W 06-02 02:13
DX: Z79.899 Other long term (current) drug therapy; I10 Essential (primary) hypertension; Z88.8 Allergy status to other drugs, medicaments and biological substances; N13.2 Hydronephrosis with renal and ureteral calculous obstruction; L40.50 Arthropathic psoriasis, unspecified; Z79.82 Long term (current) use of aspirin